=== PATIENT | female | born 1950 | race Caucasian/White ===

== ENCOUNTER 2018-10-31 13:52 | Outpatient (CLI) | payer MEDICARE, OTHER ==
--- NOTE | 2018-10-31 12:06 | HP ---
HISTORY OF PRESENT ILLNESS: Ms. Tami Miller is a very pleasant 67-year-old, who presents to the [facility] for evaluation of a wound of the left medial lower leg, which has been present since 10/01/2018. The patient states that she was mowing her lawn and trying to mow under a tree that had fallen. She states that when a branch scraped her leg deeply, she developed a laceration, which was sutured in the emergency department. She states that her son, who is a rack loader discontinued the sutures and the presence of a nonhealing surgical wound was noted. Because of an odor associated with her wound, the patient was seen in the emergency department at [facility] and placed on a course of clindamycin, which she has been taking as prescribed. The patient was referred by her primary care provider, Dr. Tellez to the [facility] on 10/25/2018. PAST MEDICAL HISTORY: 1. Chronic bronchitis. 2. Hypertension. 3. Peripheral vascular disease. 4. Diabetes mellitus. 5. Hypothyroidism. PAST SURGICAL HISTORY: 1. Bunionectomy x2. 2. Breast biopsy. 3. Right foot surgery. 4. Hysterectomy. 5. Tonsillectomy. MEDICATIONS: 1. Cozaar. 2. Metformin. 3. Toprol-XL. 4. Spiriva. 5. Prilosec. 6. Crestor. 7. Aspirin 81 mg. 8. Wellbutrin XL. 9. Invokana. 10. Symbicort. 11. Glipizide. 12. Neurontin. 13. Levothyroxine. 14. Proventil. 15. Albuterol. 16. Lantus. 17. Magnesium. 18. Vitamin D3 with zinc. 19. Calcium. ALLERGIES: METHIMAZOLE, MACROBID. SOCIAL HISTORY: Social history significant for tobacco use of one-half pack of cigarettes per day for over 30 years. The patient admits to the occasional consumption of alcohol. FAMILY HISTORY: Family history significant for diabetes mellitus. The patient states that both grandmothers and 2 sisters were diagnosed with diabetes mellitus. Family history is also significant for coronary artery disease. The patient states that her mother, father, sister and both grandmothers were diagnosed with coronary artery disease. PHYSICAL EXAMINATION: VITAL SIGNS: Temperature 97.5, pulse 75, respirations 18, and blood pressure 139/61. GENERAL: A 67-year-old female, sitting on table in examination room, in no acute distress. HEENT: Normocephalic, atraumatic. NECK: No nuchal rigidity. CHEST: Clear to auscultation. CARDIOVASCULAR: Regular rate and rhythm. ABDOMEN: Soft. EXTREMITIES: A wound of the left medial lower leg is present, which measures approximately 2.9 x 3.2 cm. Granulation tissue is present within the wound margins. Necrotic and nonviable tissue present within the wound margins was debrided with an excisional full-thickness debridement with the use of a curette. No purulent drainage is associated with the wound. Erythema of the skin surrounding the wound is present. No maceration of the skin of the periwound is noted. A dorsalis pedis pulse is palpable on the left. A posterior tibial pulse is not palpable on the left. No significant edema of the left foot or lower leg is present on exam today. Numerous varicosities are however noted over the left lower leg. NEURO: Grossly nonfocal. LABORATORY DATA: Accu-Chek 140. ASSESSMENT AND PLAN: 1. 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 Medihoney, 4 x 4's, Webril, and the 3M Coban 2 Layer Compression System will be applied to the ulceration today. The patient is to continue clindamycin as previously prescribed. I will see Ms. Miller again in 1 week. The patient understands and is in agreement with the preceding treatment plan. She has been instructed to keep the dressings applied in clinic today clean, dry, and intact until her followup visit. 2. Chronic bronchitis. 3. Hypertension. 4. Peripheral vascular disease. 5. Diabetes mellitus. The patient's Accu-Chek in clinic today is 140. The patient has been told that for optimal wound healing her blood glucoses should remain below 150. 6. Hypothyroidism. Job ID: [id number]
[2018-10-31] MEDS ORDERED: Sodium Chloride 0.9% 15 ML NEB ONE (15:00)
[2018-10-31] MEDS ORDERED: Lidocaine 2% PF 100 mg/5 ml Syringe ONE (15:00)
== END 2018-10-31 13:53 | disposition home or self-care (01) ==
LOC: WCC 13:52
PROVIDERS: ATTEND Family Medicine
DX: I83.228 Varicose veins of left lower extremity with both ulcer of other part of lower extremity and inflammation (principal); E11.622 Type 2 diabetes mellitus with other skin ulcer; E03.9 Hypothyroidism, unspecified; E11.51 Type 2 diabetes mellitus with diabetic peripheral angiopathy without gangrene; J42 Unspecified chronic bronchitis
CPT/HCPCS: 36416; A4218; J2001

== ENCOUNTER 2018-11-07 10:37 | Outpatient (CLI) | payer MEDICARE, OTHER ==
--- NOTE | 2018-11-07 09:47 | PRG ---
DATE OF SERVICE: 11/07/2018 HISTORY: Ms. Tami Miller is a very pleasant 67-year-old, who presents to the [facility]ound Center for evaluation of a wound of the left medial lower leg, which has been present since 10/01/2018. The patient stated that she was mowing her lawn and trying to mow under a tree that had fallen. She stated that when a branch scraped her leg deeply, she developed a laceration which was sutured in the emergency department. She stated that her son, who is a farm planner discontinued the sutures in the presence of a nonhealing surgical wound was noted. Because of an odor associated with her wound, the patient was seen in the emergency department at [facility] and placed on a course of clindamycin, which she had been taking as prescribed at the time of her initial presentation to the Wound Center. The patient was referred by her primary care provider, Dr. Tellez to the [facility] on 10/25/2018. After being seen in the Wound Center, the wound was dressed with Medihoney, 4x4s, Webril, and the 3M Coban 2 Layer Compression System. The patient, however, was unable to tolerate the compression wrap. PHYSICAL EXAMINATION: VITAL SIGNS: Temperature 98.5, pulse 72, respirations 16, and blood pressure 130/59. Accu-Chek 119. EXTREMITIES: A wound of the left medial lower leg is present, which measures approximately 2.3 x 2.2 cm. The dimensions of the wound at the time of the patient's last visit were approximately 2.9 x 3.2 cm. Granulation tissue is present within the wound margins. Necrotic and nonviable tissue present within the wound margins was debrided with an excisional full-thickness debridement with the use of a curette. No purulent drainage is associated with the wound. No erythema of the skin surrounding the wound is present. No maceration of the skin of the periwound is noted. A dorsalis pedis pulse is palpable on the left. No significant edema of the left foot or lower leg is present on exam today. Numerous varicosities are noted over the right and left lower legs. ASSESSMENT AND PLAN: 1. 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 Medihoney, ABD, Webril, and the 3M Coban 2 Layer Compression System will be applied to the ulceration today without tension. The patient is to return to the Wound Center in 1 week for a dressing change. I will see Ms. Miller again in 2 weeks. 2. Chronic bronchitis. 3. Hypertension. 4. Peripheral vascular disease. 5. Diabetes mellitus. The patient's Accu-Chek in clinic today is 119. The patient has been reminded that for optimal wound healing, her blood glucoses should remain below 150. 6. Hypothyroidism. Job ID: [id number]
[2018-11-07] MEDS ORDERED: Lidocaine 2% 20 ml MDV ONE (15:00)
[2018-11-07] MEDS ORDERED: Sodium Chloride 0.9% 15 ML NEB ONE ×2 (15:00)
== END 2018-11-07 10:38 | disposition home or self-care (01) ==
LOC: WCC 10:37
PROVIDERS: ATTEND Family Medicine
DX: I87.332 Chronic venous hypertension (idiopathic) with ulcer and inflammation of left lower extremity (principal); E11.622 Type 2 diabetes mellitus with other skin ulcer; L97.929 Non-pressure chronic ulcer of unspecified part of left lower leg with unspecified severity; J42 Unspecified chronic bronchitis; I73.9 Peripheral vascular disease, unspecified; E03.9 Hypothyroidism, unspecified
CPT/HCPCS: 11042; 36416; A4218; J2001

== ENCOUNTER 2018-11-30 11:59 | Outpatient (CLI) | payer MEDICARE, OTHER ==
[~2018-11-30 11:59] MED LIST: Lidocaine 2% PF 100 mg/5 ml Syringe ONE; Sodium Chloride 0.9% 15 ML NEB ONE
--- NOTE | 2018-11-30 12:00 | PRG ---
DATE OF SERVICE: 11/30/2018 HISTORY: Ms. Tami Miller is a very pleasant 67-year-old, who presents to the Wound Center for evaluation of a wound of the left medial lower leg, which has been present since 10/01/2018. The patient stated that she was mowing her lawn and was trying to mow under a tree that had fallen. She stated that when a branch scraped her leg deeply, she developed a laceration, which was sutured in the emergency department. She stated that her son, who is a maintenance trainer discontinued the sutures and the presence of a nonhealing surgical wound was noted. Because of an odor associated with her wound, the patient was seen in the emergency department at [facility] and placed on a course of clindamycin, which she had been taking as prescribed at the time of her initial presentation to the Wound Center. The patient was referred by her primary care provider, Dr. Tellez to the [facility] on 10/25/2018. After being seen in the Wound Center, the wound was dressed with Medihoney, 4x4s, Webril, and the 3M Coban 2 Layer Compression System. The patient was unable, however, to tolerate the compression wrap. Since the patient's last visit, Ms. Miller has been performing dressing changes of Medihoney for her left medial lower leg wound. PHYSICAL EXAMINATION: VITAL SIGNS: Temperature 97.7, pulse 80, respirations 19, and blood pressure 134/60. Accu-Chek 251. EXTREMITIES: A wound of the left medial lower leg is present, which measures approximately 1.7 x 1.7 cm. The dimensions of the wound at the time of the patient's last visit were approximately 1.9 x 1.9 cm. Granulation tissue is present within the wound margins. Necrotic and nonviable tissue present within the wound margins was debrided with an excisional full-thickness debridement with the use of a curette. No purulent drainage is associated with the wound. No cellulitis of the left medial lower leg is appreciated. No maceration of the skin of the periwound is noted. No significant edema of the left foot or lower leg is present on today's exam. Numerous varicosities are noted over the right and left lower legs. ASSESSMENT AND PLAN: 1. 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 Dressing changes of Medihodario 4x4s, and Coban will be continued on a daily basis after cleansing and irrigation. Arrangements were previously made for the home delivery of dressing supplies. The patient will continue to perform her own dressing changes. I will see Ms. Miller again in 1 week. 2. Chronic bronchitis. 3. Hypertension. 4. Peripheral vascular disease. 5. Diabetes mellitus. The patient's Accu-Chek in clinic today is 251. The patient has been reminded that for optimal wound healing, her blood glucoses should remain below 150. 6. Hypothyroidism. Job ID: [id number]
== END 2018-11-30 12:00 | disposition home or self-care (01) ==
LOC: WCC 11:59
PROVIDERS: ATTEND Family Medicine
DX: I83.228 Varicose veins of left lower extremity with both ulcer of other part of lower extremity and inflammation (principal); L97.929 Non-pressure chronic ulcer of unspecified part of left lower leg with unspecified severity; J42 Unspecified chronic bronchitis; I10 Essential (primary) hypertension; E11.51 Type 2 diabetes mellitus with diabetic peripheral angiopathy without gangrene; E03.9 Hypothyroidism, unspecified
CPT/HCPCS: 11042; 36416; A4218; J2001

== ENCOUNTER 2018-12-07 16:25 | Outpatient (CLI) | payer MEDICARE, OTHER ==
[~2018-12-07 16:25] MED LIST changes: +Lidocaine 2% Jelly 5 ML TUBE ONE; -Lidocaine 2% PF 100 mg/5 ml Syringe ONE
--- NOTE | 2018-12-07 17:32 | PRG ---
DATE OF SERVICE: 12/07/2018 HISTORY: Ms. Tami Miller is a very pleasant 67-year-old, who presents to the Wound Center for evaluation of a wound of the left medial lower leg, which has been present since 10/01/2018. The patient stated that she was mowing her lawn and was trying to mow under a tree that had fallen. She stated that when a branch scraped her leg deeply, she developed a laceration, which was sutured in the emergency department. She stated that her son, who is a freight brake operator, discontinued the sutures and the presence of a nonhealing surgical wound was noted. Because of an odor associated with her wound, the patient was seen in the emergency department at [facility] and placed on a course of clindamycin, which she had been taking as prescribed at the time of her initial presentation to the Wound Center. The patient was referred by her primary care provider, Dr. Tellez to the [facility] on 10/25/2018. After being seen in the Wound Center, the wound was dressed with Medihoney, 4x4s, Webril, and the 3M Coban 2 Layer Compression System. The patient, however, was unable to tolerate the compression wrap. Since the patient's last visit, Ms. Miller has been performing dressing changes of Medihoney for her left medial lower leg wound. PHYSICAL EXAMINATION: VITAL SIGNS: Temperature 97.7, pulse 101, respirations 20, and blood pressure 153/65. Accu-Chek 187. EXTREMITIES: A wound of the left medial lower leg is present, which measures approximately 1.4 x 1.8 cm. The dimensions of the wound at the time of the patient's last visit were approximately 1.7 x 1.7 cm. Granulation tissue is present within the wound margins. Necrotic and nonviable tissue present within the wound margins was debrided with an excisional full-thickness debridement with the use of a curette. No purulent drainage is associated with the wound. No cellulitis of the left medial lower leg is appreciated. No maceration of the skin of the periwound is noted. No significant edema of the left foot or lower leg is present on today's exam. Numerous varicosities are noted over the right and left lower legs. ASSESSMENT AND PLAN: 1. 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 Dressing changes of Santyl will be initiated today. These dressing changes are to be performed on a daily basis after cleansing and irrigation. Arrangements will be made for the home delivery of Santyl. The patient will continue to perform her own dressing changes. I will see Ms. Miller again in 2 weeks. 2. Chronic bronchitis. 3. Hypertension. 4. Peripheral vascular disease. 5. Diabetes mellitus. The patient's Accu-Chek in clinic today is 187. The patient has been reminded that for optimal wound healing, her blood glucoses should remain below 150. 6. Hypothyroidism. Job ID: [id number]
== END 2018-12-07 16:26 | disposition home or self-care (01) ==
LOC: WCC 16:25
PROVIDERS: ATTEND Family Medicine
DX: I83.228 Varicose veins of left lower extremity with both ulcer of other part of lower extremity and inflammation (principal); E11.622 Type 2 diabetes mellitus with other skin ulcer; L97.929 Non-pressure chronic ulcer of unspecified part of left lower leg with unspecified severity; J42 Unspecified chronic bronchitis; I10 Essential (primary) hypertension; E11.51 Type 2 diabetes mellitus with diabetic peripheral angiopathy without gangrene; E03.9 Hypothyroidism, unspecified
CPT/HCPCS: A4218

== ENCOUNTER 2018-12-19 09:20 | Outpatient (CLI) | payer MEDICARE, OTHER ==
--- NOTE | 2018-12-19 11:41 | PRG ---
DATE OF SERVICE: 12/19/2018 HISTORY: Ms. Tami Miller is a very pleasant 68-year-old who presents to the Wound Center for evaluation of a wound of the left medial lower leg, which has been present since 10/01/2018. The patient stated that she was mowing her lawn and was trying to mow under a tree that had fallen. She stated that when a branch scraped her leg deeply, she developed a laceration, which was sutured in the emergency department. She stated that her son, who is a pipe blanks cut off saw operator, discontinued the sutures and the presence of a nonhealing surgical wound was noted. Because of an odor associated with her wound, the patient was seen in the emergency department at [facility] and placed on a course of clindamycin, which she had been taking as prescribed at the time of her initial presentation to the Wound Center. The patient was referred by her primary care provider, Dr. Tellez to the [facility] on 10/25/2018. After being seen in the Wound Center, the wound was dressed with Medihoney, 4x4s, Webril, and the 3M Coban 2 Layer Compression System. The patient, however, was unable to tolerate the compression wrap. Since the patient's last visit, Ms. Miller has been performing dressing changes of Santyl for her left medial lower leg wound. PHYSICAL EXAMINATION: VITAL SIGNS: Temperature 97.7, pulse 86, respirations 18, blood pressure 140/63. Accu-Chek 148. EXTREMITIES: A wound of the left medial lower leg is present, which measures approximately 1.0 x 1.1 cm. The dimensions of the wound at the time of the patient's last visit were approximately 1.4 x 1.8 cm. Granulation tissue was present within the wound margins. Necrotic and nonviable tissue present within the wound margins was debrided with an excisional full-thickness debridement. No purulent drainage is associated with the wound. No cellulitis of the left medial lower leg is appreciated. No maceration of the skin of the periwound is noted. No significant edema of the left foot or lower leg is present on exam today. Numerous varicosities are noted over the right and left lower legs. ASSESSMENT AND PLAN: 1. 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 Dressing changes of Santyl will be continued on a daily basis after cleansing and irrigation. Arrangements were previously made for the home delivery of Santyl. The patient will continue to perform her own dressing changes. I will see Ms. Miller again in 2 weeks. 2. Chronic bronchitis. 3. Hypertension. 4. Peripheral vascular disease. 5. Diabetes mellitus. The patient's Accu-Chek in clinic today is 148. The patient has been reminded that for optimal wound healing, her blood glucoses should remain below 150. 6. Hypothyroidism. Job ID: [id number]
[2018-12-19] MEDS ORDERED: Sodium Chloride 0.9% 15 ML NEB ONE (17:00)
== END 2018-12-19 09:21 | disposition home or self-care (01) ==
LOC: WCC 09:20
PROVIDERS: ATTEND Family Medicine
DX: I83.228 Varicose veins of left lower extremity with both ulcer of other part of lower extremity and inflammation (principal); E11.622 Type 2 diabetes mellitus with other skin ulcer; L97.929 Non-pressure chronic ulcer of unspecified part of left lower leg with unspecified severity; J42 Unspecified chronic bronchitis; I10 Essential (primary) hypertension; E11.51 Type 2 diabetes mellitus with diabetic peripheral angiopathy without gangrene; E03.9 Hypothyroidism, unspecified
CPT/HCPCS: 11042; A4218

== ENCOUNTER 2019-01-05 11:42 | Outpatient (CLI) | payer MEDICARE, OTHER ==
--- NOTE | 2019-01-05 11:48 | PRG ---
DATE OF SERVICE: 01/05/2019 HISTORY: Ms. Tami Miller is a very pleasant 68-year-old, who presents to the Wound Center for evaluation of a wound of the left medial lower leg, which has been present since 10/01/2018. The patient stated that she was mowing her lawn and was trying to mow under a tree that had fallen. She stated that when a branch scraped her leg deeply, she developed a laceration, which was sutured in the emergency department. She stated that her son, who is a insurance claims adjuster discontinued the sutures and presence of a nonhealing surgical wound was noted. Because of an odor associated with her wound, the patient was seen in the emergency department at [facility] and placed on a course of clindamycin which she had been taking as prescribed at the time of her initial presentation to the Wound Center. The patient was referred by her primary care provider, Dr. Tellez to the [facility] on 10/25/2018. After being seen in the Wound Center, the wound was dressed with Medihoney, 4x4s, Webril, and the 3M Coban 2 Layer Compression System. The patient, however, was unable to tolerate the compression wrap. Since the patient's last visit, Ms. Miller has been performing dressing changes of Santyl for her left medial lower leg wound. PHYSICAL EXAMINATION: VITAL SIGNS: Temperature 97.7, pulse 89, respirations 18, blood pressure 143/55. Accu-Chek 176. EXTREMITIES: A wound of the left medial lower leg is present which measures approximately 0.5 x 0.8 cm. The dimensions of the wound at the time of the patient's last visit were approximately 1.0 x 1.1 cm. Granulation tissue is present within the wound margins. Nonviable tissue present within the wound margins was debrided with an excisional full-thickness debridement. No purulent drainage is associated with the wound. No cellulitis of the left medial lower leg is appreciated. No maceration of the skin of the periwound is noted. No significant edema of the left foot or lower leg is present on exam today. A dorsalis pedis pulse is easily palpable on the left. Numerous varicosities are noted over the right and left lower legs. ASSESSMENT AND PLAN: 1. 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 Dressing changes of Santyl will be continued on a daily basis after cleansing and irrigation. Arrangements were previously made for the home delivery of Santyl. Ms. Miller will continue to perform her own dressing changes. I will see the patient again in 2 weeks. 2. Chronic bronchitis. 3. Hypertension. 4. Peripheral vascular disease. 5. Diabetes mellitus. The patient's Accu-Chek in clinic today is 176. The patient has been reminded that for optimal wound healing her blood glucoses should remain below 150. 6. Hypothyroidism. Job ID: [id number]
[2019-01-05] MEDS ORDERED: Sodium Chloride 0.9% 15 ML NEB ONE (18:00)
== END 2019-01-05 11:43 | disposition home or self-care (01) ==
LOC: WCC 11:42
PROVIDERS: ATTEND Family Medicine
DX: I83.228 Varicose veins of left lower extremity with both ulcer of other part of lower extremity and inflammation (principal); E11.622 Type 2 diabetes mellitus with other skin ulcer; L97.929 Non-pressure chronic ulcer of unspecified part of left lower leg with unspecified severity; J42 Unspecified chronic bronchitis; I10 Essential (primary) hypertension; I73.9 Peripheral vascular disease, unspecified; E03.9 Hypothyroidism, unspecified
CPT/HCPCS: 11042; A4218

== ENCOUNTER 2019-01-19 10:29 | Outpatient (CLI) | payer MEDICARE, OTHER ==
[~2019-01-19 10:29] MED LIST changes: -Lidocaine 2% Jelly 5 ML TUBE ONE
--- NOTE | 2019-01-19 12:03 | PRG ---
DATE OF SERVICE: 01/19/2019 HISTORY: Ms. Tami Miller is a very pleasant 68-year-old, who presents to the Wound Center for evaluation of a wound of the left medial lower leg, which has been present since 10/01/2018. The patient stated that she was mowing her lawn and was trying to mow under a tree that had fallen. She stated that when a branch scraped her leg deeply, she developed a laceration, which was sutured in the emergency department. She stated that her son, who is a secondary connector armature discontinued the sutures and the presence of a nonhealing surgical wound was noted. Because of an odor associated with her wound, the patient was seen in the emergency department at [facility] and placed on a course of clindamycin, which she had been taking as prescribed at the time of her initial presentation to the Wound Center. The patient was referred by her primary care provider, Dr. Tellez to the [facility] on 10/25/2018. After being seen in the Wound Center, the wound was dressed with Medihoney, 4x4s, Webril, and the 3M Coban 2 Layer Compression System. The patient, however, was unable to tolerate the compression wrap. The patient was subsequently placed on dressing changes of Santyl for her left medial lower leg wound. PHYSICAL EXAMINATION: VITAL SIGNS: Temperature 97.5, pulse 79, respirations 18, and blood pressure 112/63. Accu-Chek 130. EXTREMITIES: A wound of the left medial lower leg is present, which measures approximately 0.3 x 0.3 cm. The dimensions of the wound at the time of the patient's last visit were approximately 0.5 x 0.8 cm. Granulation tissue is present within the wound margins. No purulent drainage is associated with the wound. No cellulitis of the left medial lower leg is appreciated. No maceration of the skin of the periwound is noted. No significant edema of the left foot or lower leg is present on exam today. Numerous varicosities are noted over the right and left lower legs. ASSESSMENT AND PLAN: 1. 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 Dressing changes of Santyl will be continued on a daily basis after cleansing and irrigation. Arrangements were previously made for the home delivery of Santyl. The patient has been instructed to continue the preceding dressing changes until the wound has completely healed. The patient has been reassured that the wound has almost healed completely. The patient will be discharged from clinic today with followup on a p.r.n. basis. 2. Chronic bronchitis. 3. Hypertension. 4. Peripheral vascular disease. 5. Diabetes mellitus. The patient's Accu-Chek in clinic today is 130. The patient has been reminded that for optimal wound healing, her blood glucoses should remain below 150. 6. Hypothyroidism. Job ID: [id number]
== END 2019-01-19 10:30 | disposition home or self-care (01) ==
LOC: WCC 10:29
PROVIDERS: ATTEND Family Medicine
DX: I83.228 Varicose veins of left lower extremity with both ulcer of other part of lower extremity and inflammation (principal); E11.622 Type 2 diabetes mellitus with other skin ulcer; L97.929 Non-pressure chronic ulcer of unspecified part of left lower leg with unspecified severity; I10 Essential (primary) hypertension; I73.9 Peripheral vascular disease, unspecified; E03.9 Hypothyroidism, unspecified; J42 Unspecified chronic bronchitis
CPT/HCPCS: A4218